=== PATIENT | male | born 1965 | race Caucasian/White ===

== ENCOUNTER 2018-12-07 15:04 | Emergency (ER) | payer BC ==
--- NOTE | 2018-12-07 15:10 | PDOC ---
Rapid Medical Evaluation Time Seen by Provider: 12/07/18 15:08 Medical Evaluation: 12/07/18 15:08 HPI: Lower back pain radiating to testicles no incontinence PE: No gross deficits ORDERS: 12/07/18 15:09 Discharge Disposition - Diagnosis Lumbar radiculopathy - Referrals - Patient Instructions - Post Discharge Activity
[2018-12-07] MEDS ORDERED: KETOROLAC TROMETHAMINE 60 MG/2 ML VIAL IM ONE (15:12)
[2018-12-07 15:14] VITALS: TEMP 97.3; BMI 23.8
[2018-12-07] MEDS ORDERED: KETOROLAC TROMETHAMINE 60 MG/2 ML VIAL ONE (15:14)
[2018-12-07] MEDS ORDERED: SODIUM CHLORIDE 1,000 ML IV STA (17:05)
--- NOTE | 2018-12-07 17:33 | PDOC ---
History of Present Illness - General Chief Complaint: Pain, Acute Stated Complaint: KIDNEY PAIN Time Seen by Provider: 12/07/18 15:08 - History of Present Illness Initial Comments: 12/07/18 17:27 53y/o M hx of asthma and bph presents to the ED with 5 hours of left lower back pain that began suddenly after lunch . He denies any preceding trauma. The pain is a 10/10 throbbing pain that waxes and wanes radiating to his left testicle. He denies any relieving/ exacerbating factors before arrival to ED. He received some ketoralac for pain and that has given him some relief. He endorses recent oral steroid use 2wks ago for an asthma exacerbation.He denies any trauma, malignancy, dysuria, hematuria, frequency, diarrhea, bloody stools, abdominal pain, fevers or chills. 12/07/18 18:24 Past History - Past Medical History Allergies/Adverse Reactions: Allergies Allergy/AdvReac Type Severity Reaction Status Date / Time No Known Allergies Allergy Verified 12/07/18 15:11 Home Medications: Ambulatory Orders Naproxen 500 mg PO BID #10 tablet 12/07/18 Asthma: Yes CVA: No COPD: No Disorders: Yes (BPH) - Surgical History GI Surgery: Yes (Hernia surgery) - Suicide/Smoking/Psychosocial Hx Smoking History: Never smoked Review of Systems - Review of Systems Constitutional: No: Chills, Fever HEENTM: No: Eye Pain, Blurred Vision Respiratory: No: Cough, Shortness of Breath Cardiac (ROS): No: Chest Pain, Palpitations ABD/GI: No: Blood Streaked Bowels, Vomiting : Yes: Symptoms Reported Musculoskeletal: Yes: Symptoms Reported Integumentary: No: Bruising, Dryness Neurological: No: Headache, Weakness *Physical Exam - Vital Signs Last Vital Signs Temp Pulse Resp BP Pulse Ox 97.3 F L 87 20 177/105 H 100 12/07/18 15:11 12/07/18 15:11 12/07/18 15:11 12/07/18 15:11 12/07/18 15:11 - Physical Exam General Appearance: Yes: Nourished, Appropriately Dressed. No: Apparent Distress HEENT: positive: Normal Voice. negative: Scleral Icterus (R), Scleral Icterus ( L) Neck: positive: Trachea midline, Supple Respiratory/Chest: positive: Lungs Clear, Normal Breath Sounds. negative: Chest Tender, Respiratory Distress, Accessory Muscle Use, Rales, Wheezing Cardiovascular: positive: Regular Rhythm, Regular Rate, S1, S2. negative: Edema , JVD Gastrointestinal/Abdominal: positive: Normal Bowel Sounds, Soft. negative: Pulsatile Mass, Increased Bowel Sounds, Rebound, Tenderness, Hernia, Mass Male Genitalia: positive: normal genitalia. negative: discharge, testicular tenderness, testicular mass, epididymus tender, inguinal hernia, CVAT Musculoskeletal: positive: Normal Inspection. negative: CVA Tenderness, Decreased Range of Motion, Vertebral Tenderness Extremity: positive: Normal Capillary Refill, Normal Inspection, Normal Range of Motion Integumentary: positive: Normal Color, Dry, Warm Neurologic: positive: Fully Oriented, Alert, Normal Mood/Affect, Normal Response ED Treatment Course - LABORATORY CBC & Chemistry Diagram: 12/07/18 19:30 12/07/18 19:30 - RADIOLOGY Radiology Studies Ordered: Category Date Time Status ABDOMEN & PELVIS CT WITH CONTR [CT] Stat CT Scan 12/07/18 17:06 Ordered - Medications Given in the ED: ED Medications Discontinued Medications Generic Name Dose Route Start Last Admin Trade Name Freq PRN Reason Stop Dose Admin Ketorolac Tromethamine 60 mg 12/07/18 15:12 12/07/18 15:17 Toradol Injection - IM 12/07/18 15:13 60 mg ONCE ONE Administration Medical Decision Making - Medical Decision Making 12/07/18 17:36 53y/o M hx of asthma and bph presents to the Ed with 5 hours of left lower back pain that began suddenly after lunch Ddx: Nephrolithiasis vs uti vs pyelonephritis Labs/Imaging/Meds cbc, cmp, ua with culture, ct abdomen and pelvis w contrast pending normal cmp Meds: Ketoralac IV, normal saline IV 1000cc 12/07/18 18:26 UA: 1+ blood. 12/07/18 19:44 CT abdomen w/o contrast: stone at ureterovesicular junction. -Cholelithiasis - non-obstructing left renal calculus -prostate enlargement which is probably moderate -bilateral inguinal hernias containing fat only -mild to moderate hydronephrosis 12/07/18 21:05 BUN/Cr on CMP 18.3/1.1 Pt discharged with instructions to follow up with his urologist Dr. Lowell Carter 12/08/18 21:56 *DC/Admit/Observation/Transfer Diagnosis at time of Disposition: Nephrolithiasis Diagnosis at time of Disposition: (Ruled Out): Lumbar radiculopathy - Discharge Dispostion Condition at time of disposition: Stable Decision to Admit order: No - Prescriptions Prescriptions: Naproxen 500 mg PO BID #10 tablet - Referrals - Patient Instructions Printed Discharge Instructions: DI for Kidney Stones Additional Instructions: You were seen in the ED for a kidney stone. Make sure to stay hydrated and you can use the naproxen that has been prescribed to you for pain relief making sure to follow all label instructions for medication use. Return to the ED if you develop Fever > 100.5, pain not controlled with the prescribed naproxen, vomiting or any other concerns and straining to urinate. Follow up with your urologist Dr. Lowell Carter at [facility] in the next few days. a copy of your CT report is included in this discharge packet. - Post Discharge Activity
[2018-12-07 18:08] LABS: EPI CELLS 0.6 /HPF (0-5/HPF); HYALINE CASTS 0 /lpf (0-8); URINE APPEARANCE CLEAR; URINE BACTERIA 1.2 /hpf (NEGATIVE); URINE BILIRUBIN NEGATIVE (NEGATIVE); URINE COLOR YELLOW; URINE GLUCOSE (UA) NEGATIVE (NEGATIVE); URINE KETONE NEGATIVE (NEGATIVE); URINE LEUK ESTERASE NEGATIVE (NEGATIVE); URINE NITRITE NEGATIVE (NEGATIVE); URINE PROTEIN NEGATIVE (NEGATIVE); URINE RBC 19 /hpf (0-4); URINE UROBILINOGEN 0.2 mg/dL (0.2-1.0); URINE WBC 1 /hpf (0-5)
[2018-12-07] MEDS ORDERED: ACETAMINOPHEN 1000 MG/100 ML VIAL (NON FORMULARY) IVPB ONE (18:11)
--- NOTE | 2018-12-07 18:16 | PDOC ---
Attending Attestation - Resident Resident Name: Lina Gurrola - ED Attending Attestation I have performed the following: I have examined & evaluated the patient, The case was reviewed & discussed with the resident, I agree w/resident's findings & plan, Exceptions are as noted - HPI HPI: 12/07/18 18:14 53 M with h/o asthma, BPH, R inguinal hernia repair presents to ED with 5 hours of L lower back pain radiating to his groin. Pt reports sudden onset throbbing pain. It is constant but worsens occasionally. Has never had this pain before. Does not feel like a hernia. Denies any F/C. Denies dysuria. Denies abdominal pain. Denies N/V/D. - Physicial Exam PE: 12/07/18 18:15 "GENERAL: Awake, alert, and fully oriented, in no acute distress. HEAD: No signs of trauma EYES: PERRLA, EOMI, sclera anicteric, conjunctiva clear ENT: Auricles normal inspection, hearing grossly normal, nares patent, oropharynx clear without exudates. Moist mucosa NECK: Nontender, no stepoffs, Normal ROM, supple, no lymphadenopathy, JVD, or masses LUNGS: Breath sounds equal, clear to auscultation bilaterally. No wheezes, and no crackles HEART: Regular rate and rhythm, normal S1 and S2, no murmurs, rubs or gallops ABDOMEN: Soft, nontender, normoactive bowel sounds. No guarding, no rebound. No masses EXTREMITIES: Normal range of motion, no edema. No clubbing or cyanosis. No cords, erythema, or tenderness NEUROLOGICAL: Cranial nerves II through XII intact. 5/5 strength and sensation in all extremities, Normal speech, normal gait, normal cerebellar function SKIN: Warm, Dry, normal turgor, no rashes or lesions noted. - Medical Decision Making 12/07/18 18:15 53 M with L lower back pain radiating to groin. Suspect renal colic. exam normal, no evidence of torsion or other testicular pathology. - Labs, UA - CTAP - IVF, pain control 12/07/18 20:46 Labs notable for hematuria, otherwise wnl CT shows kidney stone Pt reassessed - pain is well controlled. Pt tolerating PO Pt is well appearing, with normal vitals. Clinically stable for DC at this time. I discussed the physical exam findings, ancillary test results and final diagnoses with the patients family. I answered all of their questions. The family was satisfied with the care received and felt comfortable with the discharge plan and treatment plan. They agree to follow up with the primary care physician within 24-72 hours.
[2018-12-07] MEDS ORDERED: ACETAMINOPHEN INJECTION 100 ML IVPB ONE (18:20)
[2018-12-07 20:00] LABS: BASO % 0.3 % (0-2.0); HEMATOCRIT 44.8 % (35.4-49); HEMOGLOBIN 15.1 GM/dL (11.7-16.9); LYMPH % 6.7 % (8-40); MCH 31.2 pg (25.7-33.7); MCHC 33.8 g/dl (32.0-35.9); MEAN CELL VOLUME 92.4 fl (80-96); MEAN PLT VOLUME 8.1 fl (7.5-11.1); MONO % 5.4 % (3.8-10.2); NEUT % 87.6 % (42.8-82.8); PLATELET COUNT 316 K/MM3 (134-434); RBC 4.85 M/mm3 (4.00-5.60); RDW 12.8 % (11.9-15.9); WHITE BLOOD COUNT 10.1 K/mm3 (4.0-10.0)
[2018-12-07 20:24] LABS: BILIRUBIN,TOTAL 0.6 mg/dL (0.2-1); BLOOD UREA NITROGEN 18.3 mg/dL (7-18); CALCIUM 9.1 mg/dL (8.5-10.1); CREATININE 1.2 mg/dL (0.55-1.3); POTASSIUM 4.1 mmol/L (3.5-5.1); TOT PROT 7.3 g/dl (6.4-8.2)
[2018-12-07 20:32] VITALS: BP 151/104; PULSE 92
== END 2018-12-07 21:09 | disposition home or self-care (01) ==
LOC: JER 15:04
PROC: 3E0333Z Introduction of Anti-inflammatory into Peripheral Vein, Percutaneous Approach (ICD-10-PCS; principal; 2018-12-07)
PROC: 3E033NZ Introduction of Analgesics, Hypnotics, Sedatives into Peripheral Vein, Percutaneous Approach (ICD-10-PCS; 2018-12-07)
PROC: 3E0337Z Introduction of Electrolytic and Water Balance Substance into Peripheral Vein, Percutaneous Approach (ICD-10-PCS; 2018-12-07)
DX: N13.2 Hydronephrosis with renal and ureteral calculous obstruction (principal); K80.20 Calculus of gallbladder without cholecystitis without obstruction; N40.0 Benign prostatic hyperplasia without lower urinary tract symptoms; K40.20 Bilateral inguinal hernia, without obstruction or gangrene, not specified as recurrent
CPT/HCPCS: 36415; 74176-TC; 80053; 81003; 85025; 87086; 99284-25; J0131; J7030